=== PATIENT | male | born 1985 | race Caucasian/White ===

== ENCOUNTER → 2023-09-28 | Outpatient (CLI) | payer OTHER, SELFPAY | END | disposition home or self-care (01) | LOC: LABSPEC 10:37 | PROVIDERS: Referring Provider Physician Assistant Surgical; Visit Provider Physician Assistant Surgical | DX: N50.82 Scrotal pain (principal); R11.0 Nausea | CPT/HCPCS: 87086 ==

== ENCOUNTER 2023-10-08 13:34 | Emergency (ER) | payer OTHER, SELFPAY ==
[2023-10-08 13:37] VITALS: BP 119/78; PULSE 92; RESP 18; TEMP 36.6; O2SAT 100
--- NOTE | 2023-10-08 13:39 | EKG12_ITS ---
Test Reason : SOB Blood Pressure : / mmHG Vent. Rate : 092 BPM Atrial Rate : 092 BPM P-R Int : 138 ms QRS Dur : 110 ms QT Int : 322 ms P-R-T Axes : 037 010 012 degrees QTc Int : 398 ms Normal sinus rhythm Minimal voltage criteria for LVH, may be normal variant ( R in aVL ) Borderline ECG Confirmed by LUIS MOORE, ERICK ([id number]), associate entertainment editor AMADO NORTH ([id number]) on 10/09/2023 2:07:54 PM Referred By: Confirmed By:ERICK SMITH MD
[2023-10-08 13:47] LABS: Absolute Lymphocyte Count 2.74 X10^3/uL (0.83-4.51); Absolute Neutrophil Count 3.7 X10^3/uL (2.0-7.7); Basophil# 0.07 X10^3/uL; Basophil% 0.9 % (0-1); Eosinophil# 0.29 X10^3/uL; Eosinophils% 3.9 % (0-5); Hematocrit 47.1 % (40-54); Hemoglobin 15.8 g/dL (13.0-16.5); Lymphocyte # 2.74 X10^3/ul (0.83-4.51); Lymphocyte % 37.1 % (19-41); Mean Corp Hgb Conc 33.5 g/dL (32-36); Mean Corpuscular Volume 89.4 fL (80-94); Mean Platelet Vol. 11.1 fl (6.2-12.0); Monocyte# 0.54 X10^3/uL; Monocyte% 7.3 % (0-10); NRBC Flagged by Analyzer 0 % (0-5); Neutrophil # 3.73 X10^3/uL (2.7-7.7); Neutrophil % 50.5 % (47-70); Platelet Count 251 K/mm3 (150-450); RBC Distribution Width CV 12.5 % (11.6-14.6); RBC Distribution Width SD 40.9 fl (35.1-43.9); Red Blood Count 5.27 M/mm3 (4.6-6.2); White Blood Count 7.4 K/mm3 (4.4-11.0)
--- NOTE | 2023-10-08 13:55 | RAD_ITS ---
STUDY: X-RAY CHEST REASON FOR EXAM: Male, 38 years old. Chest pain TECHNIQUE: Single AP portable view of the chest. COMPARISON: None. FINDINGS: EKG electrodes are seen. The lungs are clear and expanded. There is no demonstrated pleural abnormality. Normal size heart. Normal mediastinum and lizette. Normal visualized pulmonary arteries. Normal visualized aortic arch and descending thoracic aorta. Normal visualized thoracic spine. Normal visualized ribs, clavicles, and shoulders. There is no demonstrated abnormality of the visualized soft tissue structures of the upper abdomen. RAD/Chest 1 View (Portable) IMPRESSION: Normal x-ray examination of the chest. Electronically Signed: Mauro Calle MD at 14:07 EDT ,
[2023-10-08 14:00] VITALS: O2SAT 97; BMI 27.3
--- NOTE | 2023-10-08 14:00 | EDS_ITS ---
HPI History of Present Illness Chief Complaint: Chest Pain [facility] Medical History no medical history Home Medications ?Medication ?Instructions ?Recorded ?Last Taken ?Type NK 10/08/23 Unknown History Allergy/AdvReac Type Severity Reaction Status Date / Time No Known Allergies Allergy Verified 10/08/23 13:37 Family History no significant family his Surgical History (Updated 10/08/23 @ 13:52 by Andre Gomez) History of appendectomy History of hip surgery Social History Smoking Status: Never smoker EXAM Physical Exam Const Vital Signs: 10/08/23 13:37 10/08/23 14:00 10/08/23 14:01 Temperature 98 F Temperature Source Temporal Pulse Rate 92 Respiratory Rate 18 Respiratory Effort Normal Blood Pressure 119/78 Blood Pressure Mean 91 Pulse Ox 100 97 Oxygen Delivery Method Room Air Room Air MDM MDM MDM Narrative Medical decision making narrative: HISTORY OF PRESENT ILLNESS: 38-year-old male presents with chest pain. Patient endorses is intermittent chest pain for a couple of months. Notes today as he was working in the [employer] shop he started carrying 1 he developed palpitations. Denies any chest pain. Denies any shortness of breath, recent cough fever or chills. Denies any lower extremity swelling. Denies any bleeding diathesis. Denies any recent volume loss. Denies smoking drinking or illicit drug use. Patient denies sudden onset of pain, no tearing sensation, no migratory symptoms, no new numbness, weakness or loss of sensation. Patient denies family history or personal history of Marfan syndrome or Risa-Danlos. The patient denies recent surgery in the last 4 weeks or immobilization in the last 3 days, denies previous diagnosis of DVT or PE, hemoptysis, unilateral leg swelling or malignancy with treatment the last 6 months. No estrogen use noted. REVIEW OF SYSTEMS: All other systems reviewed and are negative except as noted in the history of present illness. At least 10 review of systems reviewed and are negative except as noted in history of present illness. PHYSICAL EXAM: Nursing triage notes reviewed, Vital signs reviewed Constitutional: please see mdm HENT: MMM Eyes: Pupils equal round and reactive to light, Extraocular muscles intact Neck: No stridor, no JVD, full neck ROM Lungs: Clear to auscultation, No wheezing or rales. No increased work of breathing, no conversational dyspnea, no accessory muscle use, no nasal flaring. No respiratory distress noted Heart: Regular rate and rhythm, No murmurs, No rubs and No gallops, 2+ distal pulses (radial, femoral, posterior tibial) in all extremities Abdomen: Soft, there is no tenderness, rigidity, rebound or guarding, no obvious peritoneal signs, no palpable pulsatile abdominal masses, no auscultated abdominal bruit : No CVAT Extremities: No edema Neuro: No focal neurological deficits, cranial nerves II through XII intact, 5/5 strength in all extremities. Intact sensation to light touch in all extremities, 2+ reflexes bilateral patella tendons. Normal gait. No ataxia. Skin: No rash or lesions noted MEDICAL DECISION MAKING: Chief Complaint: Chest pain External records reviewed: Cardiology reviewed: No recent cardiac catheteriza tions, stress test or echocardiograms noted in the chart Factors affecting care: None Social determinants of health no drug use History obtained from others: Family Consults: none MDM Narrative: Patient was hemodynamically stable, afebrile and nontoxic-appearing I considered the following differential diagnosis: ACS, arrhythmia, anemia, electrolyte abnormality, pneumonia, pneumothorax, GI etiology, PE PE less likely given low risk Wells score. Aortic dissection is thought to be less likely given no sudden ripping or tearing pain, migratory pain, palpable pulse inequalities, no focal neurologic deficits concurrent with chest pain. Chance of dissection less than 05/1999. Pericarditis less likely given no pathognomonic EKG changes (no diffuse ST elevations, TN depressions). GI etiology (i.e. Boerhaave syndrome) less likely given no chest or neck crepitus, no vomiting or forced retching. ALL IMAGES (IF OBTAINED) HAVE BEEN PERSONALLY REVIEWED AND INTERPRETED BY MYSELF. EKG with normal sinus rhythm, normal axis, normal intervals, no STEMI BMP without evidence of significant electrolyte abnormalities, no anion gap, no acute kidney injury. CBC without leukocytosis, severe anemia, no thrombocytopenia. High-sensitivity troponin is negative, no evidence of myocardial ischemia I completed a HEART Score to screen for Major Adverse Cardiac Event (MACE) in this patient. The evidence indicates that the patient is very low risk for MACE and this is consistent with my clinical intuition. The risk of further workup or hospitalization for MACE is likely higher than the risk of the patient having a MACE. It is, therefore, in the patient?s best interest not to do additional emergent testing or to be hospitalized for MACE at this time. Shared Decision-Making No hospitalization indicated I have discussed with the patient my clinical impression and the result of the HEART Score to screen for MACE, as well as the risks of further testing and hospitalization. The HEART Score shows that the risk for MACE is less than 1%. Although the risk of MACE has not been completely eliminated, the risks of further testing or hospitalization for MACE likely exceed any potential benefit, and the patient agrees with not pursuing further emergent evaluation or hospitalization for MACE at this time. The patient and/or family, caregivers express understanding. The patient and/or family, caregivers agrees with the plan. Total critical care time today provided was at least 0 minutes. This excludes separately billable procedures. Critical care time (if documented) is secondary to the patient having high probability of clinically significant/life threatening deterioration in the patient's condition which required my urgent intervention. Impression: 1. Palpitations Disposition: Discharge home David Elias, DO Lab Data Labs: Laboratory Results - last 24 hr 10/08/23 13:10 WBC 7.4 RBC 5.27 Hgb 15.8 Hct 47.1 MCV 89.4 MCH 30.0 MCHC 33.5 RDW Std Deviation 40.9 RDW Coeff of Nitesh 12.5 Plt Count 251 MPV 11.1 Immature Gran % (Auto) 0.300 Neut % (Auto) 50.5 Lymph % (Auto) 37.1 Gaines % (Auto) 7.3 Eos % (Auto) 3.9 Baso % (Auto) 0.9 Absolute Neuts (auto) 3.7 Absolute Lymphs (auto) 2.74 Nucleated RBC % 0 Sodium 137 Potassium 3.5 Chloride 104 Carbon Dioxide 25.0 Anion Gap 8 BUN 13 Creatinine 0.98 Estim Creat Clear Calc 107.60 Est GFR (MDRD) Af Amer 112 Est GFR (MDRD) Non-Af 93 BUN/Creatinine Ratio 13.3 Glucose 113 H Calcium 9.2 Troponin I High Sens 4 Radiography Diagnostic Testing: Clinical Impression(s) from Imaging Studies Chest X-Ray 10/08/23 13:55 IMPRESSION: Normal x-ray examination of the chest. Electronically Signed: Mauro Calle MD at 14:07 EDT , Discharge Plan Triage Chief Complaint: Chest Pain ED Provider: David Elias Dx/Rx/DC Orders Clinical Impression: Palpitations Instructions: ED Palpitations Prescriptions: No Action NK Primary Care Provider: Yaya Morin Referrals: Yaya Morin DO [Primary Care Provider] - Activity Restrictions/Additional Instructions: Thank you for trusting us with your care today! Please begin taking a daily aspirin Please return to the emergency department if your symptoms change or worsen. Please follow with your primary care physician for further outpatient evaluation and management. Specifically obtaining outpatient echocardiogram (ultrasound of the heart), Holter monitor (at home cardiac monitoring), possibly stress test. Print Language: Scottish Disposition Disposition: Home, Self Care
[2023-10-08 14:08] LABS: Anion Gap 8 (5-15); BUN 13 mg/dL (7-18); BUN/Creat Ratio 13.3 RATIO (10-20); Calcium,Total 9.2 mg/dL (8.5-10.1); Chloride 104 mmol/L (98-107); Creatinine, Serum 0.98 mg/dL (0.70-1.30); EST Glomerular Filtration Rate 93 mL/min (>60); Est Glom Filt Rate - Afr Amer 112 mL/min (>60); Glucose 113 mg/dL (74-106); Potassium 3.5 mmol/L (3.5-5.1); Sodium Level 137 mmol/L (136-145); Troponin-I HS (w/2H Reflex) 4 pg/mL (3.0-78.0)
[2023-10-08 14:40] VITALS: BP 120/79; PULSE 77; RESP 12; TEMP 36.6; O2SAT 95
[2023-10-08 15:44] LABS: Reflex Troponin-HS? (from REC) Y
== END 2023-10-08 15:05 | disposition home or self-care (01) ==
LOC: ED 14:46
PROVIDERS: Emergency Provider Emergency Medicine; PCP Family Medicine; Visit Provider Emergency Medicine
DX: R00.2 Palpitations (principal)
CPT/HCPCS: 71045; 80048; 84484; 85025; 93005; 99284

== ENCOUNTER → 2023-10-12 | Outpatient (CLI) | payer SELFPAY, OTHER ==
--- NOTE | 2023-10-12 13:55 | ECHOD_ITS ---
Reason For Study: Palpitations Procedure This was a 2D Doppler, Color Flow transthoracic echocardiogram. Exam performed in department. Left Ventricle Normal left ventricle. The left ventricular ejection fraction is 60 %. No evidence for diastolic dysfunction. Right Ventricle Normal right ventricle. A moderator band is seen in the right ventricle. Atria The left and right atria are normal. Mitral Valve Normal mitral valve. Tricuspid Valve Trivial tricuspid valve insufficiency. Normal pulmonary artery pressure. Aortic Valve Trisinus/trileaflet aortic valve. Trivial aortic valve insufficiency. Pulmonic Valve The pulmonic valve is not well visualized. Mild (1+) pulmonic valve insufficiency. Great Vessels Normal sized aortic root. Pericardium/Pleural No pericardial effusion. MMode/2D Measurements & Calculations LVIDd: 5.2 cm IVSd: 0.99 cm LVOT diam: 2.5 cm LVIDs: 3.4 cm LVPWd: 0.74 cm LVOT area: 4.8 cm2 RVDd: 3.9 cm FS: 34.3 % Ao root diam: 3.2 cm LAV(MOD-bp): 34.6 ml LVAd ap4: 34.1 cm2 LA dimension: 3.0 cm LAV(MOD-bp) Indexed: 17.7 ml/m2 LVLd ap4: 8.5 cm LAV(MOD-sp2): 40.2 ml EDV(MOD-sp4): 115.4 ml LAV(MOD-sp4): 28.5 ml EDV(sp4-el): 116.5 ml LVAs ap4: 20.7 cm2 LVLs ap4: 7.5 cm ESV(MOD-sp4): 48.3 ml ESV(sp4-el): 48.5 ml EF(MOD-sp4): 58.1 % EF(sp4-el): 58.4 % SV(MOD-sp4): 67.1 ml SV(sp4-el): 68.1 ml LA A4 area: 13.4 cm2 RA A4 area: 17.1 cm2 TAPSE: 1.9 cm Time Measurements MV dec time: 0.17 sec Doppler Measurements & Calculations MV E max arnold: 77.3 cm/sec Lat Peak E' Arnold: 20.1 cm/sec Med Peak E' Arnold: 11.3 cm/sec MV A max arnold: 58.9 cm/sec E/E' lat: 3.8 E/E' med: 6.8 MV E/A: 1.3 MV V2 max: 84.2 cm/sec MV P1/2t max arnold: 84.8 cm/sec Ao V2 max: 139.1 cm/sec MV max P.8 mmHg MV P1/2t: 52.1 msec Ao max P.7 mmHg MV V2 mean: 41.1 cm/sec Ao V2 mean: 98.4 cm/sec MV mean P.82 mmHg MV dec slope: 476.7 cm/sec2 Ao mean P.4 mmHg MV V2 VTI: 25.4 cm MVA(P1/2t): 4.2 cm2 Ao V2 VTI: 27.5 cm SHAW(V,D): 2.9 cm2 LV V1 max: 84.1 cm/sec PA V2 max: 102.4 cm/sec PI dec slope: 173.4 cm/sec2 LV V1 max P.8 mmHg PA max PG (full): 2.3 mmHg PA V2 mean: 65.5 cm/sec PA mean PG (full): 1.1 mmHg TR max arnold: 249.8 cm/sec TR max P.0 mmHg ECHO/Echo Complete Interpretation Summary The left ventricular ejection fraction is 60 %. Mild (1+) pulmonic valve insufficiency. Ordering Physician: Yaya Morin Referring Physician: Yaya Morin Performed By: Darryl Lozada RCS
== END | disposition home or self-care (01) ==
PROVIDERS: PCP Family Medicine; Referring Provider Family Medicine; Visit Provider Family Medicine
DX: R00.2 Palpitations (principal)
CPT/HCPCS: 93306

== ENCOUNTER 2023-11-02 14:49 | Outpatient (CLI) | payer SELFPAY, OTHER ==
--- NOTE | 2023-11-02 14:52 | CT_ITS ---
INDICATION: chest pain, limited chest over read ONLY EXAMINATION: CT CHEST WITHOUT CONTRAST - CT Chest W/O Contrast Injection TECHNIQUE: Helically acquired images were obtained of the chest. A radiation dose optimization technique was used for this scan. IV Contrast dosage and agent: None. COMPARISON: None. FINDINGS: Limited CT of the chest obtained through the heart for performance of coronary artery calcium scoring which will be read by Cardiology. The entire lungs are not included in the study. LUNGS, PLEURA AND LARGE AIRWAYS: No masses, consolidation, or edema. No pleural effusion or thickening. No pneumothorax. THYROID: No thyroid lesions. HEART AND PERICARDIUM: Cardiomegaly. No pericardial effusion. CORONARY ARTERIES: Coronary artery calcification is not seen. VESSELS: Thoracic aorta is not dilated. MEDIASTINUM AND IRISH: No mediastinal or hilar adenopathy. Esophagus is unremarkable. No hiatal hernia. UPPER ABDOMEN: No acute pathology. BONES: No suspicious lytic or blastic abnormality. CT/Limited Chest CT Cardiac Only IMPRESSION: 1. No active pulmonary disease. 2. Cardiomegaly. Electronically Signed: Christian Navarro MD at 11:06 EDT ,
--- NOTE | 2023-11-03 12:22 | CA.SCORE ---
Calcium Scoring Date of Study:: 11/02/23 Indications Indications: Chest pain Coronary Calcium Scoring: High-resolution Computed Tomographic imaging of the chest was performed on [11/02/2023], with particular attention paid to the coronary arteries. Images from the examination were analyzed for the presence and extent of coronary artery calcification , using coronary calcium quantification software. The patient tolerated the procedure well and there were no complications. The results of the coronary calcification analysis are provided below. Findings Coronary Artery Left Main (LM): 0 Left Anterior Descending (LAD): 0 Left Circumflex (LCX): 0 Right Coronary Artery (RCA): 0 Total Agatston Score: 0 Percentile Rankinth percentile Calcium Scoring Interpretation: Different methods to categorize the overall amount of coronary plaque. Overall amount CAC SIS Visual of coronary plaque P1 Mild -100 <2 1-2 vessels with mild amount of plaque P2 Moderate 101-300 3-4 1-2 vessels with moderate amount, 3 vessels with mild amount of plaque P3 Severe 301-999 5-7 3 vessels with moderate amount, 1 vessel with severe amount of plaque P4 Extensive >1000 >8 2-3 vessels with severe amount of plaque Conclusion: No significant atherosclerotic plaquing noted. Calcium score of 0.
== END 2023-11-02 23:59 | disposition home or self-care (01) ==
LOC: CT 14:49
PROVIDERS: PCP Family Medicine; Referring Provider Nurse Practitioner Family; Visit Provider Nurse Practitioner Family
DX: R07.9 Chest pain, unspecified (principal); Z85.49 Personal history of malignant neoplasm of other male genital organs; I51.7 Cardiomegaly; I25.83 Coronary atherosclerosis due to lipid rich plaque
CPT/HCPCS: 75571; 76380

== ENCOUNTER 2024-04-23 11:26 | Emergency (ER) | payer OTHER, SELFPAY ==
[2024-04-23 11:27] VITALS: BP 120/72; PULSE 78; RESP 16; TEMP 36.8; O2SAT 99; BMI 26.4
--- NOTE | 2024-04-23 11:33 | ED.RN ---
Pt states employer sent him and called ahead to ED. Employer not listed in directory to check for drug testing. Pt states they are an [employer] business and do not have phones, unable to all anyone to check on need for drug testing. Employee states he is certain employer would not require testing.
--- NOTE | 2024-04-23 12:02 | VDLE_ITS ---
Reason For Study: Left leg swelling Procedure LEFT This is a venous duplex using B-mode, color GSV is normal. flow and spectral Doppler. CFV is compressible, spontaneous, phasic, Exam performed portable in ED. competent, and demonstrates normal A preliminary report was called and/or faxed augmentation. to Dr. Park and Fe PELAEZ. FV is compressible, spontaneous, phasic, competent and demonstrates normal augmentation. POP V is compressible, spontaneous, phasic, competent and demonstrates normal augmentation. T/P Trunk is compressible. PTV is compressible. LT PerV is compressible. VL/Venous Duplex US, Unilateral Interpretation Summary Deep veins of the left lower extremity are patent and compressible segmentally. There is no evidence of left lower extremity deep vein thrombosis. The left great saphenous vein rachel ears patent and compressible segmentally. Ordering Physician: Carl Park Referring Physician: Yaya Morin Performed By: Dominga Dukes RVT
--- NOTE | 2024-04-23 12:03 | EDS_ITS ---
HPI History of Present Illness Chief Complaint: Lower Extremity Injury Informant: patient Narrative Narrative: 38-year-old male presenting to the emergency room with the chief complaint of left leg injury swelling. Patient states that last week he got his leg trapped in between a pallet of lumber and the wall. States it was sore and he has been able to walk on his leg. He had some focal swelling anterior proximal patel area. Over the past couple days though he has had swelling he no notes some drainage bruising and he has a wound that has been there since the injury. He states he is concerned about infection. He notes no current pain in the calf or behind the knee. Patient also states that he has been experiencing intermittent testicular pain. He states that it is described as sharp stabbing sometimes causing the testicle to rise in his scrotum. He also has concerns about whether or not he should be circumcised. He states that the nomination he does not have access to Internet he was unsure who he should speak to about this. Tetanus Immunization: >10 years PFSH PFS Home Medications ?Medication ?Instructions ?Recorded ?Last Taken ?Type NK 09/27/23 Unknown History NK 10/08/23 Unknown History Allergy/AdvReac Type Severity Reaction Status Date / Time No Known Allergies Allergy Verified 04/23/24 11:30 Surgical History History of appendectomy History of hip surgery History of appendectomy History of hip surgery Social History Smoking Status: Never smoker alcohol intake: never ROS ROS ED Constitutional Constitutional ED: Denies chills, fever(s) or weight loss Eyes Eyes: Denies change in vision or diplopia ENT ENT ED: Denies ear pain, rhinorrhea or sore throat Cardiovascular Cardiovascular: Denies chest pain, orthopnea, palpitations or racing heartbeat Respiratory/Chest Respiratory/Chest: Denies cough, dyspnea or orthopnea Gastrointestinal Gastrointestinal: Denies abdominal pain, diarrhea, nausea or vomiting Genitourinary Genitourinary ED: Reports other Details: Intermittent right testicular pain ; Denies dysuria, hematuria or urinary frequency Musculoskeletal Musculoskeletal: Reports other Details: Left patel pain swelling ; Denies arthralgias or myalgias Integumentary Reports Abrasions; Denies abscess or rash Neurologic Neurologic: Denies headache(s) or weakness Psychiatric Psychiatric: Denies anxiety, depression, suicidal ideation or suicidal thoughts Endocrine Endocrinology: Denies polydipsia, polyphagia or polyuria Allergic/Immunologic Allergic/Immunologic ED: Denies mouth swelling, tongue swelling or urticaria EXAM Physical Exam Const Vital Signs: 04/23/24 11:27 Temperature 98.2 F Temperature Source Oral Pulse Rate 78 Respiratory Rate 16 Blood Pressure 120/72 Blood Pressure Mean 88 Pulse Ox 99 Oxygen Delivery Method Room Air Positive well nourished and well developed General Appearance ED: well developed and NAD HEENT Reports normocephalic, head/scalp atraumatic and moist mucous membranes Eyes PERRL and EOMs intact bilaterally Neck full ROM, no lymphadenopathy, supple and no JVD Resp normal respiratory effort and clear to auscultation bilaterally Cardio regular rate, regular rhythm and no murmurs GI normal to inspection, nondistended, normoactive bowel sounds and non-tender Palpation: soft Narrative: Patient declined female clinical document improvement educator stating zoroastrian regions. Testicles appear of normal lie and I do not appreciate any nodularity. There is no significant tenderness. He is uncircumcised. Back/Spine no CVA tenderness and normal ROM Extremity Extremity Narrative: Anterior left mid patel to proximal patel over the medial aspect demonstrates a half dime sized abrasion with surrounding greenish ecchymosis. There is mild nonpitting edema compared to the right. This appears to go down to about the level of the malleoli. Calf is nontender. There is no palpable cords. There is no tenderness behind the calf or significant swelling noted. General Extremety ED: Negative for edema General Extremity: Negative for edema Neuro oriented x3 and CN's II-XII intact bilaterally Sensorium / Orientation: alert Motor Exam: strength 5/5 throughout Psych mental status grossly normal Mood & Affect: Negative for depressed or tearful Skin no rashes or lesions noted and no wounds MDM MDM MDM Narrative Medical decision making narrative: Differential diagnosis includes but not limited to bone contusion hematoma muscular hematoma infection For the testicular discomfort I recommend follow-up with urology if he chooses. Especially if the pain becomes more constant or he notices a distinct difference in the shape of the testicle. If he wishes to discuss circumcision it would probably be best with the urologist given that he is an adult at this time. Patient declines a tetanus update. My independent interpretation of the plain films of the left tib-fib is no acute fracture. Duplex ultrasound is negative for DVT. At this point I think the patient most likely has a hematoma that is resolving. Would recommend continued supportive care follow-up as needed return if worsening or concerns History & Record Review Discussion w/independent historian: Patient Discharge Plan Triage Chief Complaint: Lower Extremity Injury ED Provider: Carl Park Dx/Rx/DC Orders Clinical Impression: Hematoma of left lower leg, Right testicular pain Instructions: Bone Contusion Prescriptions: No Action NK NK Primary Care Provider: Yaya Morin Referrals: Jerzy Vitale MD [Med Staff - Active Staff] - As Needed (for male urology) Yaya Morin DO [Primary Care Provider] - As Needed Print Language: Urdu Disposition Disposition: Home, Self Care
--- NOTE | 2024-04-23 12:15 | RAD_ITS ---
STUDY: X-RAY - LEFT TIBIA AND FIBULA REASON FOR EXAM: Male, 38 years old. Injury TECHNIQUE: 3 view(s) of the tibia and fibula were obtained. COMPARISON: None. FINDINGS: Normal visualized tibia. Normal visualized fibula. The soft tissue structures are unremarkable. RAD/Tibia & Fibula 2 Views IMPRESSION: Normal x-ray examination of the tibia and fibula. Electronically Signed: Mauro Calle MD at 13:30 EST ,
[2024-04-23 13:09] VITALS: BP 122/74; PULSE 65; RESP 18; TEMP 37; O2SAT 99
== END 2024-04-23 13:10 | disposition home or self-care (01) ==
LOC: ED 12:17
PROVIDERS: Emergency Provider Emergency Medicine; PCP Family Medicine; Visit Provider Emergency Medicine
DX: S80.812A Abrasion, left lower leg, initial encounter (principal); S80.12XA Contusion of left lower leg, initial encounter; N50.811 Right testicular pain; W23.2XXA Caught, crushed, jammed or pinched between a moving and stationary object, initial encounter; Z28.21 Immunization not carried out because of patient refusal
CPT/HCPCS: 73590; 93971; 99282